=== PATIENT | male | born 2000 | race Two or more races ===

== ENCOUNTER 2025-07-10 01:05 | Emergency (ER) | payer OTHER ==
[~2025-07-10] VITALS: Ht 180.3 cm; Wt 104.5 kg
[2025-07-10 01:14] VITALS: TEMP 97.7
[2025-07-10 01:32] VITALS: BP 105/63; PULSE 63; RESP 19; O2SAT 98
[2025-07-10 02:23] LABS: PLATELET COUNT (AUTO) 210 K/uL (150-450); RED BLOOD CELL COUNT(AUTO) 4.61 MIL/uL (4.50-5.90); RED CELL DISTRIBUTION WIDTH 13.6 % (11.5-14.5); WHITE BLOOD COUNT (AUTO) 7.4 K/uL (4.5-11.0)
[2025-07-10 02:25] LABS: CALCIUM, TOTAL 8.5 mg/dL (8.8-10.5); CREATININE 0.93 mg/dL (0.60-1.30); GLOMERULAR FILTR. RATE CALC > 60 mL/min (>60); GLUCOSE,RANDOM 90 mg/dL (70-110); SODIUM SERUM 139 mmol/L (136-145); UREA NITROGEN, BLOOD 15 mg/dL (7-18)
== END 2025-07-10 04:14 | disposition home or self-care (01) ==
LOC: EMS 01:08
DX: K21.9 Gastro-esophageal reflux disease without esophagitis (principal)
CPT/HCPCS: 71045; 80048; 83735; 85025; 99284; 36415-L1; 36415-TC